=== PATIENT | male | born 1995 | race Caucasian/White ===

== ENCOUNTER 2022-02-04 03:19 | Emergency (ER) | payer BC ==
[~2022-02-04] VITALS: Ht 175.3 cm; Wt 63.6 kg
[2022-02-04 04:22] LABS: ALANINE AMINOTRANSFERASE 37 U/L (12-78); ALBUMIN 4.8 G/DL (3.4-5.0); ALBUMIN/GLOBULIN RATIO 1.4 (1.1-1.5); ALKALINE PHOSPHATASE 119 IU/L (46-116); ANION GAP 13 (8-16); ASPARTATE AMINO TRANSFERASE 21 U/L (10-37); BILIRUBIN,TOTAL 1.1 MG/DL (0.1-1.0); BLOOD UREA NITROGEN 28 MG/DL (7-18); BUN/CREATININE RATIO 19.4 (5.4-32.0); CALCIUM 10.3 MG/DL (8.5-10.1); CHLORIDE 100 MMOL/L (99-107); CREATININE 1.44 MG/DL (0.60-1.10); GLUCOSE 151 MG/DL (70-104); LIPASE 51 U/L (73-393); POTASSIUM 4.5 MMOL/L (3.5-5.1); SODIUM 140 MMOL/L (135-145); TOTAL CARBON DIOXIDE 27.2 MMOL/L (24-32); TOTAL PROTEIN 8.3 G/DL (6.4-8.2); eGFR 60 ML/MIN
[2022-02-04 04:29] LABS: BASOPHILS # (AUTO) 0.1 X10'3 (0-0.2); BASOPHILS % (AUTO) 0.5 % (0-1); EOSINOPHILS % (AUTO) 0.1 % (0-6); HEMATOCRIT 52.9 % (42.0-52.0); HEMOGLOBIN 17.9 g/dl (14.0-17.9); LYMPHOCYTES # (AUTO) 0.2 X10'3 (1.1-4.8); LYMPHOCYTES % (AUTO) 1.4 % (21-51); MEAN CORPUSCULAR HEMOGLOBIN 29.7 PG (27.0-31.0); MEAN CORPUSCULAR HGB CONC 33.8 g/dL (33.0-36.5); MEAN PLATELET VOLUME 9.6 FL (7.4-10.4); MONOCYTES # (AUTO) 0.3 X10'3 (0-0.9); MONOCYTES % (AUTO) 1.8 % (2-12); NEUTROPHILS # (AUTO) 14.7 X10'3 (1.8-7.7); NEUTROPHILS % (AUTO) 96.2 % (42-75); PLATELET COUNT 207 X10'3 (140-440); RED BLOOD COUNT 6.01 X10'6 (4.70-6.10); RED CELL DISTRIBUTION WIDTH 13.3 % (11.5-14.5); WHITE BLOOD COUNT 15.2 X10'3 (4.5-11.0)
[2022-02-04 04:41] LABS: CLARITY,URINE CLEAR (Clear); GLUCOSE, URINE NEGATIVE (Neg); KETONES,URINE 40 mg/dl (Neg); LEUKOCYTE ESTERASE ,URINE NEGATIVE (Neg); NITRITES, URINE NEGATIVE (Neg); OCCULT BLOOD,URINE NEGATIVE (Neg); PH,URINE 5.5 (4.8-8.0); PROTEIN,URINE NEGATIVE (Neg); UROBILINOGEN,URINE 0.2 E.U/dL (0.2-1.0)
[2022-02-04 04:45] LABS: UA COLLECTION TYPE CLN CATCH MIDSTREAM
[2022-02-04 04:46] LABS: COLOR,URINE AMBER (Yellow)
[2022-02-04] MEDS ORDERED: ondansetron/PF 4mg/2ml inj IV ONE (05:15)
[2022-02-04] MEDS ORDERED: normal saline 1000ml 1,000 ML IV ONE ×2 (05:15→05:55)
[2022-02-04] MEDS ORDERED: ONDA4TAB12 PO ×2 (05:56→07:03)
[2022-02-04] MEDS ORDERED: TAM75C PO (06:24)
[2022-02-04 06:59] VITALS: BP 122/71
== END 2022-02-04 07:23 | disposition home or self-care (01) ==
LOC: ER 03:22
DX: R11.2 Nausea with vomiting, unspecified (principal); E86.0 Dehydration; Z79.899 Other long term (current) drug therapy
CPT/HCPCS: 36415; 80053; 81003; 83690; 85025; 87502; 87503; 96361; 96374; 99284; J2405; J7030